=== PATIENT | female | born 1965 | race Caucasian/White ===

== ENCOUNTER 2018-11-29 14:02 | Emergency (ER) | payer BC, OTHER ==
[2018-11-29 15:09] VITALS: BP 110/78
--- NOTE | 2018-11-29 16:37 | UC ---
Respiratory Complaint HPI - HPI Summary HPI Summary: 53-year-old female presents with 2 1/2 week history of chest congestion and occasionally productive cough. Associated with fatigue, mild nasal congestion, postnasal drip, and laryngitis. Denies fever, chills, ear pain, sore throat, chest pain, difficulty breathing, abdominal pain, nausea, or vomiting. - History of Current Complaint Chief Complaint: UCRespiratory Stated Complaint: COLD SYMP Time Seen by Provider: 11/29/18 16:25 Hx Obtained From: Patient Hx Last Menstrual Period: perimenopause Pain Intensity: 0 - Allergies/Home Medications Allergies/Adverse Reactions: Allergies Allergy/AdvReac Type Severity Reaction Status Date / Time amoxicillin Allergy Unknown Verified 11/29/18 15:10 Reaction Details azithromycin Allergy Unknown Verified 11/29/18 15:10 Reaction Details Penicillins Allergy Unknown Verified 11/29/18 15:10 Reaction Details PMH/Surg Hx/FS Hx/Imm Hx - Additional Past Medical History Additional PMH: verterbral artery dissection, autoimmune arthritis Endocrine History: Hypothyroidism - [place] - Surgical History Surgical History: Yes Surgery Procedure, Year, and Place: ACL repair. c section - Family History Known Family History: Positive: Non-Contributory - Social History Occupation: Employed Full-time Lives: With Family Alcohol Use: Occasionally Substance Use Type: None Smoking Status (MU): Never Smoked Tobacco Review of Systems All Other Systems Reviewed And Are Negative: Yes Constitutional: Positive: Fatigue. Negative: Fever, Chills Skin: Negative: Rash Eyes: Negative: Drainage, Eye Redness ENT: Positive: Sinus Congestion, Other - post-nasal drip, laryngitis. Negative : Sore Throat, Ear Ache, Nasal Discharge, Sinus Pain/Tenderness Respiratory: Positive: Cough. Negative: Shortness Of Breath, Other Cardiovascular: Negative: Palpitations Gastrointestinal: Negative: Abdominal Pain, Vomiting, Diarrhea, Nausea Genitourinary: Positive: Negative Musculoskeletal: Positive: Negative Neurological: Positive: Negative Is Patient Immunocompromised?: No Physical Exam - Summary Physical Exam Summary: GENERAL APPEARANCE: Well developed, well nourished, alert and cooperative, and appears to be in no acute distress. EYES: Conjunctiva clear. No drainage. Vision is grossly intact. EARS: External auditory canals and tympanic membranes clear, hearing grossly intact. NOSE: Mild nasal congestion. No nasal discharge. THROAT: Pharyngeal cobblestoning. No tonsilar inflammation, swelling, exudate, or lesions. Uvula midline. NECK: Neck supple, non-tender without lymphadenopathy. CARDIAC: Normal S1 and S2. No S3, S4 or murmurs. Rhythm is regular. There is no peripheral edema, cyanosis or pallor. Extremities are warm and well perfused. Capillary refill is less than 2 seconds. Peripheral pulses intact. LUNGS: Clear to auscultation without rales, rhonchi, wheezing or diminished breath sounds. Cough not observed. ABDOMEN: Positive bowel sounds. Soft, nondistended, nontender. No guarding or rebound. No masses or hepatosplenomegally. MUSKULOSKELETAL: ROM intact to all extremities. No joint erythema or tenderness. Normal muscular development. Normal gait. SKIN: Skin normal color, texture and turgor with no lesions or eruptions. Triage Information Reviewed: Yes Vital Signs: Initial Vital Signs Temp 99 F 11/29/18 15:05 Pulse 78 11/29/18 15:05 Resp 16 11/29/18 15:05 BP 110/78 11/29/18 15:05 Pulse Ox 98 11/29/18 15:05 Vital Signs Reviewed: Yes Respiratory Course/Dx - Course Course Of Treatment: 53-year-old female presents with 2 1/2 week history of chest congestion and occasionally productive cough. Associated with fatigue, mild nasal congestion, postnasal drip, and laryngitis. Denies fever, chills, ear pain, sore throat, chest pain, difficulty breathing, abdominal pain, nausea, or vomiting. Afebrile. Vital signs stable. Exam is remarkable for some mild nasal congestion, pharyngeal cobblestoning, and clear bilateral breath sounds. Considering the duration of her symptoms will treat for acute bronchitis with likely secondary bacterial infection with a seven-day course of doxycycline 100 mg twice a day as well as symptomatic treatment including Tessalon Perles 1 capsule every 8 hours as needed for cough and fluticasone nasal spray 2 sprays each nostril once daily for the postnasal drip. She is to follow-up with her primary care provider in 5-7 days if symptoms do not improve. Anticipatory guidance and warning symptoms reviewed with the patient. Verbalizes understanding and agrees with plan of care. - Differential Dx/Diagnosis Differential Diagnosis/HQI/PQRI: Bronchitis, Lower Resp Infection, Sinusitis Provider Diagnosis: Acute bronchitis Discharge - Sign-Out/Discharge Documenting (check all that apply): Patient Departure All imaging exams completed and their final reports reviewed: No Studies - Discharge Plan Condition: Stable Disposition: HOME Prescriptions: Benzonatate CAP* [Tessalon 100 MG CAP*] 100 mg PO TID PRN #30 cap PRN Reason: Cough Doxycycline Hyclate 100 mg PO BID #14 tablet Fluticasone NASAL SPRAY 50MCG* [Flonase NASAL SPRAY 50MCG*] 2 spray BOTH NARES DAILY #1 btl Patient Education Materials: Acute Bronchitis (ED) Referrals: Valerie Copeland NP [Primary Care Provider] - 5 Days Additional Instructions: Your history and exam are consistent with acute bronchitis. Considering the duration of your symptoms we will treat you with an antibiotic for the infection. Start doxycycline 100 mg 1 tab twice a day for 7 days. Be aware that the cough with bronchitis may persist for 2-3 weeks even after treatment. Get plenty of rest. Drink plenty of fluids. Run a cool mist humidifer in your room at night. Take over the counter acetaminophen (Tylenol) or ibuprofen (Advil, Motrin) according to directions as needed for pain or fever. Use fluticasone nasal spray 2 sprays each nostril to help with the post-nasal drip. Take Tessalon Perles 1 cap every 8 hours as needed for cough. Follow up with your primary care provider in 5-7 days especially if symptoms do not improve. Seek immediate medical attention in the emergency room if you have fever greater than 100.5 F despite taking acetaminophen or ibuprofen, have chest pain , difficulty breathing, or have any worsening of symptoms. - Billing Disposition and Condition Condition: STABLE Disposition: Home
== END 2018-11-29 17:00 | disposition home or self-care (01) ==
LOC: UCEAST 14:02
DX: J20.9 Acute bronchitis, unspecified (principal); Z88.0 Allergy status to penicillin; Z88.1 Allergy status to other antibiotic agents
CPT/HCPCS: 99212; G0463